=== PATIENT | female | born 1965 | race Two or more races ===

== ENCOUNTER 2023-01-10 08:41 | Emergency (ER) | payer OTHER ==
[~2023-01-10] VITALS: Ht 162.6 cm; Wt 72.6 kg
== END 2023-01-10 21:23 | disposition home or self-care (01) ==
LOC: ER 08:41
PROVIDERS: Emergency Medicine
DX: K52.9 Noninfective gastroenteritis and colitis, unspecified (principal); K52.89 Other specified noninfective gastroenteritis and colitis; Z91.013 Allergy to seafood